=== PATIENT | female | born 1955 | race Caucasian/White ===

== ENCOUNTER 2025-01-04 06:03 | Day surgery (SDC) | payer SELFPAY ==
[2025-01-01 11:53] VITALS: BMI 20.3
[2025-01-04] MEDS ORDERED: MIDAZOLAM HCL 2 MG/2 ML SINGLE DOSE VIAL ONE (07:48)
[2025-01-04] MEDS ORDERED: PROPOFOL 40 ML ONE (07:49)
[2025-01-04] MEDS ORDERED: LIDOCAINE HCL/PF 2% SDV 5ML VIAL ONE (07:49)
[2025-01-04] MEDS ORDERED: DEXAMETHASONE SOD PHOSPHATE 4 MG/1 ML VIAL ONE ×2 (07:49→08:42)
[2025-01-04] MEDS ORDERED: ONDANSETRON 4 MG/2 ML VIAL ONE (07:49)
[2025-01-04] MEDS ORDERED: SUCCINYLCHOLINE CHLORIDE 200 MG/10 ML SYRINGE ONE (07:51)
[2025-01-04] MEDS ORDERED: BUPIVACAINE HCL/EPINEPHRINE/PF 30 ML VIAL IJ ONE (08:04)
[2025-01-04] MEDS ORDERED: ceFAZolin SODIUM 1 GM VIAL ONE (08:15)
[2025-01-04] MEDS: BUPIVACAINE 0.25% /EPI 1:200,000 10 ML VIAL NR ONE (08:29)
[2025-01-04] MEDS ORDERED: KETOROLAC TROMETHAMINE 30 MG/1 ML VIAL ONE (08:29)
[2025-01-04] MEDS ORDERED: SEVOFLURANE 250 ML BTL ONE (08:42)
[2025-01-04] MEDS ORDERED: MUPIROCIN 2% TOPICAL OINTMENT FOR DECOLONIZATION NS ONE (09:35)
[2025-01-04] MEDS ORDERED: ONDANSETRON 4 MG/2 ML VIAL IVPUSH PRN (10:28)
[2025-01-04] MEDS ORDERED: ACETAMINOPHEN 325 MG TABLET (FP) PO PRN (10:28)
[2025-01-04] MEDS ORDERED: LACTATED RINGERS SOLUTION 1,000 ML IV SCH ×2 (10:30→10:45)
[2025-01-04] MEDS ORDERED: oxyCODONE HCL 5 MG TABLET PO PRN (10:33)
[2025-01-04 11:19] VITALS: RESP 16
[2025-01-04 11:27] VITALS: PULSE 70; TEMP 98
[2025-01-04 12:46] VITALS: BP 110/67
[2025-01-04] MEDS ORDERED: CEFAZOLIN 1 GM/D5W 1 GRAM/50 ML BAG IVPB SCH (15:00)
== END 2025-01-04 12:05 | disposition home or self-care (01) ==
LOC: FASU 06:03
PROVIDERS: ATTEND Plastic Surgery
PROC: 0W020ZZ Alteration of Face, Open Approach (ICD-10-PCS; principal; 2025-01-04 08:46)
DX: H57.813 Brow ptosis, bilateral (principal)
CPT/HCPCS: 94760